=== PATIENT | male | born 1980 | race Caucasian/White ===

== ENCOUNTER 2016-06-27 13:53 | Day surgery (SDC) | payer BC, OTHER ==
[~2016-06-27] VITALS: Ht 170.2 cm; Wt 68.2 kg
[2016-06-27 14:25] VITALS: BP 115/66
[2016-06-27] MEDS ORDERED: NO MEDICATIONS (14:40)
[2016-06-27] MEDS ORDERED: FENTANYL PF 250 MCG/5ML ONE (15:17)
[2016-06-27] MEDS ORDERED: MIDAZOLAM 1 MG/ML, 2ML ONE (15:17)
[2016-06-27] MEDS ORDERED: ONDANSETRON 2MG/ML, 2ML ONE (15:53)
[2016-06-27] MEDS ORDERED: CEFAZOLIN 1,000 MG ONE (15:53)
[2016-06-27] MEDS ORDERED: DEXAMETHASONE 4 MG/ML, 1ML ONE (15:53)
[2016-06-27] MEDS ORDERED: PROPOFOL 10 MG/ML, 20ML ONE (15:53)
[2016-06-27] MEDS ORDERED: KETOROLAC 30 MG/1 ML ONE (15:53)
[2016-06-27] MEDS ORDERED: ROPIvacaine/PF 0.5%, 30 ML INFIL ONE (16:21)
[2016-06-27] MEDS ORDERED: LIDOCAINE 1%-EPI 1:100K, 30ML INFIL ONE (16:21)
[2016-06-27] MEDS ORDERED: OXYcodone 5 MG/5 ML ORAL.SOL UDC ONE (16:53)
[2016-06-27] MEDS ORDERED: ALBUTEROL SULFATE 2.5 MG/3 ML NPPB PRN (17:00)
[2016-06-27] MEDS ORDERED: ONDANSETRON 2MG/ML, 2ML IVPush PRN (17:00)
[2016-06-27] MEDS ORDERED: HYDROmorphone 1 MG/ML, 1ML IV PRN (17:00)
[2016-06-27] MEDS ORDERED: OXYcodone 5 MG/5 ML ORAL.SOL UDC PO PRN (17:00)
[2016-06-27] MEDS ORDERED: FENTANYL PF 100 MCG/2ML IV PRN (17:00)
[2016-06-27] MEDS ORDERED: LABETALOL 5MG/ML, 20ML IV PRN (17:00)
[2016-06-27] MEDS ORDERED: hydrALAzine 20 MG/ML, 1ML IV PRN (17:00)
[2016-06-27] MEDS ORDERED: PROMETHAZINE 25 MG/ML, 1ML IV PRN (17:00)
[2016-06-27] MEDS ORDERED: METOPROLOL 1 MG/ML, 5ML IV PRN (17:00)
[2016-06-27] MEDS ORDERED: EPHEDRINE 50 MG/ML, 1ML IVPush PRN (17:00)
[2016-06-27] MEDS ORDERED: MEPERIDINE/PF 25MG/0.5ML IVPush PRN (17:00)
[2016-06-27] MEDS ORDERED: MIDAZOLAM 1 MG/ML, 2ML IV PRN (17:00)
[2016-06-27] MEDS ORDERED: ACETAMINOPHEN 325 MG TABLET PO PRN (17:00)
== END 2016-06-27 18:30 | disposition home or self-care (01) ==
LOC: OR 13:53
PROVIDERS: ATTEND Orthopaedic Surgery
DX: S83.211A Bucket-handle tear of medial meniscus, current injury, right knee, initial encounter (principal); M65.861 Other synovitis and tenosynovitis, right lower leg; S83.231A Complex tear of medial meniscus, current injury, right knee, initial encounter; X50.1XXA Overexertion from prolonged static or awkward postures, initial encounter; Y93.9 Activity, unspecified; Y92.9 Unspecified place or not applicable; Y99.9 Unspecified external cause status
CPT/HCPCS: 29881; J0690; J1100; J1885; J2250; J2405; J2704; J2795; J3010; J3490